=== PATIENT | female | born 2000 | race Caucasian/White ===

== ENCOUNTER 2019-03-21 13:23 | Emergency (ER) | payer OTHER ==
[2019-03-21 13:57] VITALS: BP 105/56
--- NOTE | 2019-03-21 14:02 | UC ---
Ear Complaint HPI - HPI Summary HPI Summary: Patient is a 18yo female presenting with right ear pain x4 days. Notes pain and drainage from ear started around the same time. Notes green drainage. Notes decreased hearing in right ear. Denies swimming, flying, or any trauma that would cause perforation. Denies fever, n/v/d. Notes some dizziness. Denies nasal congestion, sore throat, difficulty breathing. Denies taking anything for pain. - History of Current Complaint Chief Complaint: UCEar Stated Complaint: RIGHT EAR Hx Obtained From: Patient Hx Last Menstrual Period: 02/2019 Onset/Duration: Sudden Onset Severity Currently: Severe Pain Intensity: 8 Pain Scale Used: 0-10 Numeric - Allergies/Home Medications Allergies/Adverse Reactions: Allergies Allergy/AdvReac Type Severity Reaction Status Date / Time No Known Allergies Allergy Verified 03/21/19 13:54 PMH/Surg Hx/FS Hx/Imm Hx Previously Healthy: Yes - Surgical History Surgical History: None - Family History Known Family History: Positive: Non-Contributory - Social History Alcohol Use: None Substance Use Type: Marijuana Substance Use Comment - Amount & Last Used: daily Smoking Status (MU): Never Smoked Tobacco Review of Systems All Other Systems Reviewed And Are Negative: Yes Constitutional: Positive: Negative Eyes: Positive: Negative ENT: Positive: Ear Ache, Other - pt notes decreased hearing and green discharge from rt ear. Negative: Sore Throat, Nasal Discharge, Sinus Congestion, Sinus Pain/Tenderness Respiratory: Positive: Negative Cardiovascular: Positive: Negative Gastrointestinal: Positive: Negative Musculoskeletal: Positive: Negative Neurological: Positive: Other - notes some brief episodes on dizziness. Negative: Headache Psychological: Positive: Negative Physical Exam Triage Information Reviewed: Yes Appearance: Well-Appearing, No Pain Distress, Well-Nourished Vital Signs: Initial Vital Signs Temp 98.8 F 03/21/19 13:54 Pulse 72 03/21/19 13:54 Resp 14 03/21/19 13:54 BP 105/56 03/21/19 13:54 Pulse Ox 100 03/21/19 13:54 Vital Signs Reviewed: Yes Eyes: Positive: Conjunctiva Clear. Negative: Conjunctiva Inflamed, Discharge ENT Exam: Normal ENT: Positive: Hearing grossly normal, Pharynx normal. Negative: Nasal congestion, Nasal drainage, TMs normal - left TM impacted with cerumen, unable to visualize TM. Right TM appears perforated. Yellow/green discharge noted in rt ear canal. Patient experienced severe pain when rt ear being examined, Tonsillar swelling Neck: Positive: Supple Respiratory Exam: Normal Respiratory: Positive: Lungs clear, Normal breath sounds, No respiratory distress, No accessory muscle use. Negative: Crackles, Rhonchi, Stridor, Wheezing Cardiovascular Exam: Normal Cardiovascular: Positive: RRR. Negative: Tachycardia Neurological: Positive: Alert Psychological: Positive: Age Appropriate Behavior Skin Exam: Normal Ear Complaint Course/Dx - Course Course Of Treatment: Patient denied wanting any ibuprofen for pain. I educated the patient that the perforation should heal on its own but that it is important to follow up with ENT. Prescribed amoxicillin for ear infection. Patient voiced understanding and agreed to treatment plan. - Differential Dx/Diagnosis Provider Diagnosis: Perforated right tympanic membrane on examination Discharge ED - Sign-Out/Discharge Documenting (check all that apply): Patient Departure All imaging exams completed and their final reports reviewed: No Studies - Discharge Plan Condition: Stable Disposition: HOME Prescriptions: Amoxicillin PO (*) [Amoxicillin 500 MG CAP*] 500 mg PO TID #21 cap Patient Education Materials: Ruptured Eardrum (ED) Referrals: Jermaine Danielle PA [Primary Care Provider] - Mitchell Tena MD [Medical Doctor] - As Soon As Possible Additional Instructions: As discussed, you have a perforated eardrum. Take amoxicillin as prescribed for treatment of ear infection. You may take ibuprofen and tylenol as directed for pain relief. Do not go swimming or submerge your head or place anything inside your ear. It is likely your eardrum will heal on its own, but it is important that you follow up with the ENT doctor listed below for further evaluation. - Billing Disposition and Condition Condition: STABLE Disposition: Home
== END 2019-03-21 14:35 | disposition home or self-care (01) ==
LOC: UCCORT 13:23
DX: H72.91 Unspecified perforation of tympanic membrane, right ear (principal); H61.22 Impacted cerumen, left ear; J35.8 Other chronic diseases of tonsils and adenoids
CPT/HCPCS: 99212; G0463